=== PATIENT | male | born 1995 | race Two or more races ===

== ENCOUNTER 2022-12-06 14:05 | Emergency (ER) | payer SELFPAY ==
[~2022-12-06] VITALS: Ht 177.8 cm; Wt 57.0 kg
[2022-12-06 14:20] VITALS: BP 135/80; PULSE 96; RESP 18; O2SAT 97
== END 2022-12-06 19:08 | disposition left against medical advice (07) ==
LOC: EDBD 14:05 → ER 14:05
DX: F19.239 Other psychoactive substance dependence with withdrawal, unspecified (principal); Z53.21 Procedure and treatment not carried out due to patient leaving prior to being seen by health care provider